=== PATIENT | female | born 1975 | race Caucasian/White ===

== ENCOUNTER 2020-03-03 11:03 | Outpatient (CLI) | payer OTHER, SELFPAY ==
--- NOTE | ~2020-03-03 | MMUS_ITS ---
EXAMINATION: MM diagnostic luis daniel RT w chay, US breast RT limited HISTORY: History of right breast cancer. Status post right lumpectomy in 2018. TECHNIQUE: Additional 3-D tomosynthesis images of the right breast were performed and synthetic 2-D i mages were generated. CAD analysis was submitted and interpreted. High resolution right breast ultras ound was performed. COMPARISON: None BREAST PARENCHYMAL COMPOSITION: Breast composed of scattered areas of fibroglandular density. FINDINGS: MAMMOGRAPHIC FINDINGS: There is architectural distortion in skin thickening in the upper inner quadrant of the right breast with calcifications identified posteriorly in the right breast on the cc view. ULTRASOUND: Right breast ultrasound: At 1:00, 3 cm from the nipple in the area of palpable concern there is an irregular shaped hypoechoic mass measuring 1.7 x 1.6 x 1.43 cm with posterior shadowing. No significant internal vascularity. IMPRESSION: 1. Complex hypoechoic 1.7 cm right breast mass at 1:00, 3 cm from the nipple. This corresponds to the area of palpable concern. 2. Comparison to outside studies is recommended to assess stability. BI-RADS CATEGORY 0 - INCOMPLETE STUDY, NEED ADDITIONAL IMAGING EVALUATION. Reviewed, dictated and finalized at location A. IMPRESSION: 1. Complex hypoechoic 1.7 cm right breast mass at 1:00, 3 cm from the nipple. T his corresponds to the area of palpable concern. 2. Comparison to outside studies is recommended to assess stability. BI-RADS CATEGORY 0 - INCOMPLETE STUDY, NEED ADDITIONAL IMAGING EVALUATION.
== END 2020-03-03 11:04 | disposition home or self-care (01) ==
LOC: ANHIMG 11:07
PROVIDERS: PCP Internal Medicine; Visit Provider Radiology Radiation Oncology
DX: C50.211 Malignant neoplasm of upper-inner quadrant of right female breast (principal); N63.10 Unspecified lump in the right breast, unspecified quadrant; R92.8 Other abnormal and inconclusive findings on diagnostic imaging of breast
CPT/HCPCS: 76642; 77061; 77065; G0279